=== PATIENT | female | born 1945 | race African-American/Black ===

== ENCOUNTER 2018-09-27 22:05 | Inpatient (IN) ==
[2018-09-27] MEDS ORDERED: MORPHINE 4 MG/1 ML VIAL IV STA (22:29)
[2018-09-27] MEDS ORDERED: SODIUM CHLORIDE 0.9% 1,000 ML IV STA (22:29)
[2018-09-27] MEDS ORDERED: ONDANSETRON 4 MG/2 ML VIAL IV STA (22:29)
[2018-09-27 23:32] LABS: Basophils % 0.2 % (0.0-0.8); Eosinophils % 0.3 % (0.00-10.9); Hematocrit 29.8 VOL% (35.7-47.0); Hemoglobin 9.2 GM/DL (12.0-16.0); Immature Granulocytes % 1.8 %; Immature Granulocytes Absolute 0.21 #; Lymphocytes # 1.2 10*3/uL (1.4-4.0); Lymphocytes % 10.6 % (21.3-54.2); Mean Corpuscular HGB Conc 30.9 GM/DL (32-36); Mean Corpuscular Hemoglobin 31 PG (27-34); Mean Corpuscular Volume 98.7 FL (87-102); Mean Platelet Volume 10.8 FL (9.6-12.0); Monocytes # 1.1 10*3/uL (0.11-0.8); Monocytes % 9.6 % (1.7-12.7); NRBC # 0.07 10*3/uL; Neutrophils # 9.1 10*3/uL (1.4-7.4); Neutrophils % 77.5 % (38.7-73.9); Platelet Count 172 T/CUMM (130-400); Red Blood Count 3.02 MC/CUMM (3.8-5.5); Red Cell Distribution Width 13.7 % (9.3-17.3); White Blood Count 11.7 T/CUMM (4-12)
[2018-09-27 23:43] LABS: PT Patient Result 10.9 SECS; Partial Thromboplastin Time 22.6 SECS (0-40)
[2018-09-27 23:58] LABS: Alanine Aminotransferase 11 U/L (13-56); Albumin 2.9 G/DL (3.4-5.0); Alkaline Phosphatase 80 U/L (45-117); Aspartate Amino Transferase 12 U/L (0-37); Bilirubin,Total < 0.39 MG/DL (0.2-1.0); Blood Urea Nitrogen 114 MG/DL (7-18); Calcium 8.4 MG/DL (8.5-10.1); Glucose 250 MG/DL (74-106); Potassium 4.1 MMOL/L (3.5-5.1); Sodium 136 MMOL/L (136-145); Total Protein 7.1 G/DL (6.4-8.3)
[2018-09-28] MEDS ORDERED: ACETAMINOPHEN 325 MG TABLET PO PRN (00:13)
[2018-09-28] MEDS ORDERED: GLUCAGON 1 MG VIAL IM PRN (00:13)
[2018-09-28] MEDS ORDERED: DEXTROSE 50% 25 GM/50 ML SYRINGE IV PRN (00:13)
[2018-09-28] MEDS ORDERED: ONDANSETRON 4 MG/2 ML VIAL IV PRN (00:13)
[2018-09-28] MEDS: MORPHINE 4 MG/1 ML VIAL IV PRN ×4 (03:24→22:02)
[2018-09-28] MEDS ORDERED: ceFAZolin 2,000 MG in PREMIX 1 EACH IV ONE (06:16)
[2018-09-28] MEDS ORDERED: VANCOMYCIN INJ 1,000 MG in SODIUM CHLORIDE 0.9% 250 ML IV ONE (06:17)
[2018-09-28] MEDS: INSULIN REGULAR 100 UNIT/ML SUBCUT SCH ×3 (07:18→18:20)
[2018-09-28] MEDS: SODIUM CHLORIDE 0.9% 1,000 ML IV SCH ×2 (07:19→16:22)
[2018-09-28 07:29] LABS: Basophils % 0.2 % (0.0-0.8); Eosinophils # 0.1 10*3/uL (0.0-0.87); Eosinophils % 0.5 % (0.00-10.9); Hematocrit 24.9 VOL% (35.7-47.0); Immature Granulocytes % 2.6 %; Immature Granulocytes Absolute 0.36 #; Lymphocytes # 1.7 10*3/uL (1.4-4.0); Lymphocytes % 12.2 % (21.3-54.2); Mean Corpuscular HGB Conc 30.9 GM/DL (32-36); Mean Corpuscular Hemoglobin 31 PG (27-34); Mean Corpuscular Volume 99.6 FL (87-102); Monocytes # 1.6 10*3/uL (0.11-0.8); Monocytes % 11.6 % (1.7-12.7); NRBC # 0.09 10*3/uL; Neutrophils # 9.9 10*3/uL (1.4-7.4); Neutrophils % 72.9 % (38.7-73.9); Platelet Count 188 T/CUMM (130-400); Red Cell Distribution Width 13.7 % (9.3-17.3); White Blood Count 13.6 T/CUMM (4-12)
[2018-09-28 07:39] LABS: Hemoglobin 7.7 GM/DL (12.0-16.0)
[2018-09-28 07:44] LABS: Calcium 8.2 MG/DL (8.5-10.1); Osmolality,Calculated 317.8 MOS/KG (273-304); Potassium 4.4 MMOL/L (3.5-5.1)
[2018-09-28] MEDS ORDERED: SODIUM CHLORIDE 0.9% 1,000 ML IV PRN (07:53)
[2018-09-28] MEDS: PANTOPRAZOLE 40 MG TABLET PO SCH (08:31)
[2018-09-28] MEDS ORDERED: ENOXAPARIN 30 MG/0.3 ML SYRINGE SUBCUT SCH (09:00)
[2018-09-28] MEDS ORDERED: IXAZOMIB CITRATE 4 MG PO SCH (09:45)
[2018-09-28] MEDS ORDERED: SODIUM CHLORIDE 0.9% 250 ML IV ONE (09:55)
[2018-09-28] MEDS ORDERED: ALBUTEROL 2.5 MG/3 ML NEB RESP TX PRN (10:00)
[2018-09-28] MEDS ORDERED: COLCHICINE 0.6 MG CAPSULE PO PRN (10:00)
[2018-09-28] MEDS ORDERED: EPINEPHrine 1 MG/ML VIAL ONE (11:39)
[2018-09-28] MEDS ORDERED: BUPIVACAINE 0.5% 50 ML VIAL ONE (11:39)
[2018-09-28] MEDS ORDERED: MIDAZOLAM 2 MG/2 ML VIAL ONE (11:49)
[2018-09-28] MEDS ORDERED: cefTRIAXone 1,000 MG in SYRINGE 1 EACH IV SCH (14:00)
[2018-09-28 14:02] LABS: Basophils % 0.1 % (0.0-0.8); Eosinophils % 0.3 % (0.00-10.9); Hematocrit 25.8 VOL% (35.7-47.0); Lymphocytes # 1.7 10*3/uL (1.4-4.0); Lymphocytes % 12.8 % (21.3-54.2); Mean Corpuscular Hemoglobin 31 PG (27-34); Mean Corpuscular Volume 98.5 FL (87-102); Mean Platelet Volume 10.9 FL (9.6-12.0); Monocytes # 1.9 10*3/uL (0.11-0.8); Monocytes % 14.2 % (1.7-12.7); Neutrophils # 9.3 10*3/uL (1.4-7.4); Neutrophils % 69.6 % (38.7-73.9); Platelet Count 162 T/CUMM (130-400); Red Blood Count 2.62 MC/CUMM (3.8-5.5); Red Cell Distribution Width 14.1 % (9.3-17.3); White Blood Count 13.4 T/CUMM (4-12)
[2018-09-28 14:22] LABS: Alanine Aminotransferase 11 U/L (13-56); Albumin 2.2 G/DL (3.4-5.0); Alkaline Phosphatase 51 U/L (45-117); Aspartate Amino Transferase 10 U/L (0-37); Bilirubin,Total < 0.39 MG/DL (0.2-1.0); Blood Urea Nitrogen 116 MG/DL (7-18); Calcium 8.1 MG/DL (8.5-10.1); Glucose 217 MG/DL (74-106); Osmolality,Calculated 316.8 MOS/KG (273-304); Potassium 4.7 MMOL/L (3.5-5.1); Sodium 137 MMOL/L (136-145); Total Protein 5.8 G/DL (6.4-8.3)
[2018-09-28] MEDS: HYDROCORTISONE 100 MG VIAL IV SCH ×2 (14:58→22:21)
[2018-09-28] MEDS ORDERED: FUROSEMIDE 40 MG TABLET PO SCH (16:00)
[2018-09-28 16:47] LABS: Hematocrit 30.4 VOL% (35.7-47.0); Hemoglobin 9.2 GM/DL (12.0-16.0)
[2018-09-28] MEDS ORDERED: CARVEDILOL 25 MG TABLET PO SCH ×2 (21:00)
[2018-09-28] MEDS: FERROUS SULFATE 325 MG TABLET PO SCH (22:21)
[2018-09-29 01:08] LABS: Hematocrit 26.6 VOL% (35.7-47.0); Hemoglobin 8.5 GM/DL (12.0-16.0)
[2018-09-29] MEDS: INSULIN REGULAR 100 UNIT/ML SUBCUT SCH ×2 (03:27→06:33)
[2018-09-29] MEDS: MORPHINE 4 MG/1 ML VIAL IV PRN ×2 (03:27→06:44)
[2018-09-29] MEDS: SODIUM CHLORIDE 0.9% 1,000 ML IV SCH ×2 (03:59→05:48)
[2018-09-29] MEDS ORDERED: MAGNESIUM SULF RIDER 2 GM in PREMIX 1 EACH IV PRN (05:00)
[2018-09-29] MEDS ORDERED: MAGNESIUM SULF RIDER 4 GM in PREMIX 1 EACH IV PRN (05:00)
[2018-09-29 05:03] LABS: Basophils % 0.2 % (0.0-0.8); Hematocrit 25.8 VOL% (35.7-47.0); Hemoglobin 8.2 GM/DL (12.0-16.0); Immature Granulocytes % 3.5 %; Immature Granulocytes Absolute 0.66 #; Lymphocytes # 1.1 10*3/uL (1.4-4.0); Lymphocytes % 5.6 % (21.3-54.2); Mean Corpuscular HGB Conc 31.8 GM/DL (32-36); Mean Corpuscular Hemoglobin 30 PG (27-34); Mean Corpuscular Volume 95.6 FL (87-102); Mean Platelet Volume 11.4 FL (9.6-12.0); Monocytes # 2.6 10*3/uL (0.11-0.8); Monocytes % 13.8 % (1.7-12.7); NRBC # 0.37 10*3/uL; Neutrophils # 14.4 10*3/uL (1.4-7.4); Neutrophils % 76.9 % (38.7-73.9); Platelet Count 133 T/CUMM (130-400); Red Cell Distribution Width 14.4 % (9.3-17.3); White Blood Count 18.7 T/CUMM (4-12)
[2018-09-29 05:31] LABS: Calcium 7.6 MG/DL (8.5-10.1); Osmolality,Calculated 317.7 MOS/KG (273-304); Potassium 4.4 MMOL/L (3.5-5.1)
[2018-09-29 05:48] LABS: Band Neutrophils 1 % (0-10); Hypochromasia 1+; Lymphocytes 5 % (20-55); Myelocytes 1 %; Nucleated Red Blood Cells 2 (0-5); Platelet Estimate Adequate; Segmented Neutrophils 82 % (50-85); Total Cells Counted 100
[2018-09-29] MEDS ORDERED: VANCOMYCIN INJ 1,000 MG in SODIUM CHLORIDE 0.9% 250 ML IV ONE (06:00)
[2018-09-29] MEDS ORDERED: ceFAZolin 2,000 MG in PREMIX 1 EACH IV ONE (06:00)
[2018-09-29] MEDS: HYDROCORTISONE 100 MG VIAL IV SCH (06:33)
[2018-09-29] MEDS ORDERED: FAMOTIDINE 20 MG TABLET PO ONE (07:05)
[2018-09-29] MEDS ORDERED: MAGNESIUM SULF RIDER 50 ML IV ONE (07:47)
[2018-09-29] MEDS ORDERED: CALCIUM GLUCONATE 2,000 MG in SODIUM CHLORIDE 0.9% 100 ML IV ONE (07:56)
[2018-09-29] MEDS ORDERED: DIGOXIN 0.5 MG/2 ML AMP IV ONE (07:56)
[2018-09-29] MEDS ORDERED: MAGNESIUM SULF RIDER 4 GM in PREMIX 1 EACH IV ONE (07:57)
[2018-09-29] MEDS ORDERED: AMIODARONE INJ 150 MG in DEXTROSE 5% 100 ML IV ONE (08:00)
[2018-09-29] MEDS ORDERED: FUROSEMIDE 80 MG TABLET PO SCH (08:00)
[2018-09-29] MEDS ORDERED: SODIUM CHLORIDE 0.9% 1,000 ML IV PRN ×2 (08:14→12:17)
[2018-09-29] MEDS ORDERED: SODIUM CHLORIDE 0.9% 500 ML IV ONE (08:15)
[2018-09-29 08:17] LABS: Hematocrit 25.3 VOL% (35.7-47.0)
[2018-09-29 08:31] VITALS: BP 113/74
[2018-09-29 08:31] LABS: Apearance,Urine CLEAR (Clear); Bacteria,Urine Occasional /HPF (Few); Bilirubin,Urine Negative (Negative); Blood, Urine Moderate mg/dL (Negative); Glucose,Urine (UA) Negative (Negative); Ketones,Urine Negative (Negative); Nitrite,Urine Negative (Negative); Protein,Urine Negative; RBC,Urine 10 /HPF (0-4); Squamous Epithelial Cell,Urine Occasional /HPF (0-10); Urine Color Yellow (Yellow); Urine Specific Gravity 1.013 (1.001-1.035); Urine Urobilinogen < 2.0 EU/DL (0.2-1.0); WBC,Urine 4 /HPF (0-6)
[2018-09-29] MEDS ORDERED: CALCIUM CHLORIDE 1,000 MG/10 ML VIAL IV ONE (09:00)
[2018-09-29] MEDS ORDERED: CETIRIZINE 10 MG TABLET PO SCH (09:00)
[2018-09-29] MEDS ORDERED: ATROPINE 1 MG/10 ML SYRINGE ONE (09:00)
[2018-09-29] MEDS ORDERED: MAGNESIUM OXIDE 400 MG TABLET PO SCH (09:00)
[2018-09-29] MEDS ORDERED: ALLOPURINOL 100 MG TABLET PO SCH (09:00)
[2018-09-29] MEDS ORDERED: AMIODARONE 150 MG/3 ML VIAL ONE (09:00)
[2018-09-29] MEDS ORDERED: metOLazone 5 MG TABLET PO SCH (09:00)
[2018-09-29] MEDS ORDERED: CALCIUM CHLORIDE 1,000 MG/10 ML SYRINGE IV ONE (09:00)
[2018-09-29] MEDS ORDERED: EPINEPHrine 1 MG/ML VIAL ONE ×2 (09:00→13:43)
[2018-09-29] MEDS ORDERED: EPINEPHrine 1 MG/10 ML SYRINGE ONE (09:00)
[2018-09-29] MEDS ORDERED: ASPIRIN EC 81 MG TABLET PO SCH (09:00)
[2018-09-29] MEDS ORDERED: LIDOCAINE 100 MG/5 ML SYRINGE ONE (09:00)
[2018-09-29] MEDS ORDERED: SPIRONOLACTONE 50 MG TABLET PO SCH (09:00)
[2018-09-29] MEDS ORDERED: EZETIMIBE 10 MG TABLET PO SCH (09:00)
[2018-09-29] MEDS ORDERED: METOPROLOL TARTRATE 50 MG TABLET PO SCH (09:00)
[2018-09-29] MEDS ORDERED: CALCITRIOL 0.25 MCG CAPSULE PO SCH (09:00)
[2018-09-29] MEDS: PANTOPRAZOLE 40 MG TABLET PO SCH (09:09)
[2018-09-29] MEDS: FERROUS SULFATE 325 MG TABLET PO SCH (11:10)
[2018-09-29] MEDS ORDERED: BACITRACIN OINT 0.9 GM PACK TOP ONE (11:45)
[2018-09-29] MEDS ORDERED: TRANEXAMIC ACID 1,000 MG/10 ML VIAL ONE ×2 (11:45→12:53)
[2018-09-29] MEDS ORDERED: MAGNESIUM SULFATE 10 GM/20 ML VIAL IV ONE (13:29)
[2018-09-29] MEDS ORDERED: NOREPINEPHRINE 4 MG/4 ML VIAL IV ONE (14:05)
[2018-09-29 14:13] LABS: ABG Base Excess -11.3 MMOL/L (-2.5-2.5); ABG HCO3 15.3 MMOL/L (20-26); ABG Oxygen Saturation 94.4 % (95-100); Glucose Heart Surgery 481 MG/DL (74-106); Hematocrit Heart Surgery 21.6 PERCENT (37-47); Hemoglobin Heart Surgery 6.9 G/DL (12.0-16.0); Potassium Heart/CVR 4.5 MMOL/L (3.5-5.1)
[2018-09-29 14:17] LABS: ABG PH 6.958 (7.35-7.45)
[2018-09-29 14:18] LABS: ABG PCO2 95.8 MM HG (35-48)
[2018-09-29 14:29] LABS: Basophils # 0.1 10*3/uL (0.0-0.2); Basophils % 0.6 % (0.0-0.8); Eosinophils # 0.1 10*3/uL (0.0-0.87); Eosinophils % 0.5 % (0.00-10.9); Hematocrit 21.7 VOL% (35.7-47.0); Immature Granulocytes % 13.4 %; Lymphocytes # 5.2 10*3/uL (1.4-4.0); Lymphocytes % 40.8 % (21.3-54.2); Mean Corpuscular HGB Conc 29.5 GM/DL (32-36); Mean Corpuscular Hemoglobin 29 PG (27-34); Mean Corpuscular Volume 99.1 FL (87-102); Mean Platelet Volume 13.1 FL (9.6-12.0); Monocytes # 1.1 10*3/uL (0.11-0.8); Monocytes % 8.9 % (1.7-12.7); NRBC # 1.95 10*3/uL; Neutrophils # 4.5 10*3/uL (1.4-7.4); Neutrophils % 35.8 % (38.7-73.9); Platelet Count 50 T/CUMM (130-400); Red Blood Count 2.19 MC/CUMM (3.8-5.5); Red Cell Distribution Width 15.9 % (9.3-17.3); White Blood Count 12.7 T/CUMM (4-12)
[2018-09-29 14:39] LABS: Hemoglobin 6.4 GM/DL (12.0-16.0)
[2018-09-29 14:52] LABS: Alanine Aminotransferase 543 U/L (13-56); Albumin 0.9 G/DL (3.4-5.0); Alkaline Phosphatase 45 U/L (45-117); Aspartate Amino Transferase 668 U/L (0-37); Bilirubin,Total < 0.39 MG/DL (0.2-1.0); Blood Urea Nitrogen 86 MG/DL (7-18); Glucose 474 MG/DL (74-106); Osmolality,Calculated 351.4 MOS/KG (273-304); Potassium 4.8 MMOL/L (3.5-5.1); Sodium 154 MMOL/L (136-145); Total Protein 2.7 G/DL (6.4-8.3)
[2018-09-29] MEDS ORDERED: fentaNYL 100 MCG/2 ML VIAL ONE (14:52)
[2018-09-29] MEDS ORDERED: MIDAZOLAM 2 MG/2 ML VIAL ONE (14:52)
[2018-09-29 14:53] LABS: Calcium 11.5 MG/DL (8.5-10.1)
[2018-09-29 15:13] LABS: Band Neutrophils 2 % (0-10); Lymphocytes 50 % (20-55); Segmented Neutrophils 40 % (50-85); Total Cells Counted 100
[2018-09-29 15:14] LABS: Hypochromasia Slight; Microcytosis 1+; Platelet Estimate Decreased; Poikilocytosis Slight
[2018-09-29 15:15] LABS: Ovalocytes Slight
[2018-09-30] MEDS ORDERED: CALCITRIOL 0.25 MCG CAPSULE PO SCH (09:00)
[2018-10-03] MEDS ORDERED: DEXAMETHASONE 4 MG TABLET PO SCH (09:37)
== END 2018-09-29 14:42 | disposition expired | DRG 469 ==
LOC: EDUNIT# → EDBD → N.ED 22:05 → SUATTDRO 09-28 00:13 → N.EDINP 09-28 00:13 → N.3E 09-28 05:08 → N.ICU 09-28 13:50
PROVIDERS: ADMIT Emergency Medicine; ATTEND Internal Medicine